=== PATIENT | female | born 1965 | race Caucasian/White ===

== ENCOUNTER → 2018-05-07 | Outpatient (CLI) | payer OTHER | END | disposition home or self-care (01) | LOC: CFH 09:42 | PROVIDERS: ATTEND Family Medicine | DX: Z12.31 Encounter for screening mammogram for malignant neoplasm of breast (principal) | CPT/HCPCS: 77063; 77067 ==

== ENCOUNTER → 2019-10-07 | Outpatient (CLI) | payer OTHER ==
[~2019-10-07] MED LIST: CETI-158 PO; CHOL10003 PO; DAPA10TA PO; DILT240C55 PO; EVOL140S2 INJ; EZET10TA70 PO; ICOS1CAP PO; IRBE300T8 PO; LIRA0.6P INJ; METF10007 PO
[2019-10-07 11:45] LABS: ALANINE AMINOTRANSFERASE 22 U/L (12-78); ALBUMIN 3.7 g/dL (3.4-5.0); ANION GAP 4 mmol/L (5-15); CHLORIDE 112 mmol/L (98-107); CREATININE 0.76 mg/dL (0.55-1.02)
[2019-10-07 11:47] LABS: ALKALINE PHOSPHATASE 97 U/L (45-117); BILIRUBIN,TOTAL 0.4 mg/dL (0.2-1.0); TOTAL PROTEIN 7.1 g/dL (6.4-8.2)
== END | disposition home or self-care (01) ==
LOC: STAR 10:39
PROVIDERS: ATTEND Internal Medicine
DX: Z01.818 Encounter for other preprocedural examination (principal); K63.9 Disease of intestine, unspecified; I51.7 Cardiomegaly; Z88.6 Allergy status to analgesic agent
CPT/HCPCS: 36415; 80053; 93005

== ENCOUNTER 2019-10-11 05:39 | Day surgery (SDC) | payer OTHER ==
[~2019-10-11] VITALS: Ht 154.9 cm; Wt 90.0 kg
[2019-10-11] MEDS ORDERED: LACTATED RINGERS 1,000 ML IV SCH (06:03)
[2019-10-11] MEDS ORDERED: CHLORHEXIDINE 15 ML UDC MM STA (06:04)
[2019-10-11] MEDS ORDERED: PROPOFOL 50 ML ONE (07:38)
[2019-10-11] MEDS ORDERED: FENTANYL PF 100 MCG/2ML IV PRN (08:00)
[2019-10-11] MEDS ORDERED: LABETALOL 5MG/ML, 20ML IV PRN (08:00)
[2019-10-11] MEDS ORDERED: ONDANSETRON 2MG/ML, 2ML IVPush PRN (08:00)
[2019-10-11] MEDS ORDERED: PROMETHAZINE 25 MG/ML, 1ML IVPush PRN (08:00)
[2019-10-11] MEDS ORDERED: hydrALAzine 20 MG/ML, 1ML IV PRN (08:00)
[2019-10-11] MEDS ORDERED: LORazepam 2 MG/ML, 1ML IVPush PRN (08:00)
[2019-10-11] MEDS ORDERED: HYDROmorphone 1 MG/ML, 1ML INJ IVPush PRN (08:00)
[2019-10-11] MEDS ORDERED: OXYcodone 5 MG/5 ML ORAL.SOL UDC PO PRN (08:00)
== END 2019-10-11 09:30 | disposition home or self-care (01) ==
LOC: OUT 05:39
PROVIDERS: ATTEND Internal Medicine
DX: K63.5 Polyp of colon (principal); Z11.59 Encounter for screening for other viral diseases; K57.30 Diverticulosis of large intestine without perforation or abscess without bleeding; E11.9 Type 2 diabetes mellitus without complications; F17.210 Nicotine dependence, cigarettes, uncomplicated; E78.5 Hyperlipidemia, unspecified; E66.9 Obesity, unspecified; Z79.899 Other long term (current) drug therapy; Z72.89 Other problems related to lifestyle; Z86.718 Personal history of other venous thrombosis and embolism; Z86.010 Personal history of colon polyps; Z79.01 Long term (current) use of anticoagulants; Z68.37 Body mass index [BMI] 37.0-37.9, adult; Z82.49 Family history of ischemic heart disease and other diseases of the circulatory system
CPT/HCPCS: 36415; 45338; 82962; 87635; 88305; J2704; J7120

== ENCOUNTER → 2020-01-05 | Outpatient (CLI) | payer OTHER | END | disposition home or self-care (01) | LOC: CFH 12:52 | PROVIDERS: ATTEND Family Medicine | DX: Z12.31 Encounter for screening mammogram for malignant neoplasm of breast (principal); Z12.2 Encounter for screening for malignant neoplasm of respiratory organs; F17.210 Nicotine dependence, cigarettes, uncomplicated; R91.8 Other nonspecific abnormal finding of lung field; I25.10 Atherosclerotic heart disease of native coronary artery without angina pectoris; M51.34 Other intervertebral disc degeneration, thoracic region | CPT/HCPCS: 77067; G0297 ==

== ENCOUNTER → 2020-05-09 | Outpatient (CLI) | payer OTHER | END | disposition home or self-care (01) | LOC: CFH 16:11 | PROVIDERS: ATTEND Family Medicine | DX: Z12.2 Encounter for screening for malignant neoplasm of respiratory organs (principal); R91.8 Other nonspecific abnormal finding of lung field; I25.10 Atherosclerotic heart disease of native coronary artery without angina pectoris; F17.211 Nicotine dependence, cigarettes, in remission | CPT/HCPCS: 71271 ==